=== PATIENT | female | born 1985 | race Caucasian/White ===

== ENCOUNTER 2017-02-27 19:10 | Emergency (ER) | payer MEDICAID, OTHER ==
[~2017-02-27] VITALS: Ht 162.6 cm; Wt 76.0 kg
[~2017-02-27 19:10] MED LIST: ACET325T33 PO; FERR240T9 PO; IBUP800T25 PO; PREN-39 PO
[2017-02-27 19:14] VITALS: Ht 162.6 cm; Wt 76.0 kg
--- NOTE | 2017-02-27 20:45 | ERD ---
ER Documentation Chief Complaint Date/Time DATE: 02/27/17 TIME: 20:41 Chief Complaint PALPITATIONS ON AND OFF SINCE MORNING WITH ANXIETY HPI 31-year-old female presents to emergency department for complaint of palpitations started this morning. Patient denies any chest pain. Patient denies any dyspnea on exertion and dyspnea on lying down. Patient denies eating any coughing. Patient denies any stressors that may be causing anxiety. Patient denies any fever or chills. Patient denies any cough. ROS All systems reviewed and are negative except as per history of present illness. Medications Home Meds Active Scripts Ibuprofen* (Motrin*) 800 Mg Tab, 800 MG PO Q6H Y for PAIN AND OR ELEVATED TEMP, #30 TAB Prov:TROY COTE MD 06/15/15 Acetaminophen* (Tylenol*) 325 Mg Tablet, 2 TAB PO Q6 Y for PAIN AND OR ELEVATED TEMP, #20 TAB Prov:LENKA DIXON DO 05/16/15 Reported Medications Ferrous Gluconate (Iron) 1 Tab Tablet, 1 TAB PO DAILY 12/26/14 Vits W-Ca,Fe,Fa(<1MG) ( Vitamins) 1 Tab Tablet, 1 TAB PO DAILY 12/05/14 Allergies Allergies: Coded Allergies: No Known Allergy (Verified , 12/26/14) PMhx/Soc Medical and Surgical Hx: pt denies Medical Hx, pt denies Surgical Hx History of Surgery: No Anesthesia Reaction: No Hx Neurological Disorder: No Hx Respiratory Disorders: No Hx Cardiac Disorders: No Hx Psychiatric Problems: No Hx Miscellaneous Medical Probl: No Hx Alcohol Use: No Hx Substance Use: No Hx Tobacco Use: No Smoking Status: Never smoker FmHx Family History: No coronary disease, No diabetes, No other Physical Exam Vitals Vital Signs Date Time Temp Pulse Resp B/P Pulse Ox O2 Delivery O2 Flow Rate FiO2 02/27/17 19:14 98.1 104 18 129/88 100 Physical Exam GENERAL: The patient is well developed and appropriate for usual state of health, in no apparent distress. NECK CHEST: Clear to auscultation bilaterally. There are no rales, wheezes or rhonchi. HEART: Tachycardic rate and rhythm. No murmurs, clicks, rubs or gallops. No S3 or S4. ABDOMEN: Soft, nontender and nondistended. Good bowel sounds. No rebound or guarding. No gross peritonitis. No gross organomegaly or masses. No Coreas sign or McBurney point tenderness. BACK: No midline or flank tenderness. EXTREMITIES: Equal pulses bilaterally. There is no peripheral clubbing, cyanosis or edema. No focal swelling or erythema. Full range of motion. Grossly neurovascularly intact. NEURO: Alert and oriented. Cranial nerves 2-12 intact. Motor strength in all 4 extremities with 5/5 strength. Sensation grossly intact. Normal speech and gait. SKIN: There is no apparent rash or petechia. The skin is warm and dry. HEMATOLOGIC AND LYMPHATIC: There is no evidence of excessive bruising or lymphedema. No gross cervical, axillary, or inguinal lymphadenopathy. Results 24 hrs PROCEDURE: XR Chest. CLINICAL INDICATION: Palpitations TECHNIQUE: Single frontal view of the chest was obtained COMPARISON: None FINDINGS: The heart and mediastinum are within normal limits. The lungs are clear. There is no pleural effusion or pneumothorax. RPTAT: AA IMPRESSION: No acute disease. .Ted Canseco MD, MD Date Time Electronically viewed and signed by .Ted Canseco MD, MD on 02/27/2017 21: 04 .S/ CC: GEOVANNA CARRANZA CONTRACTING EXECUTIVE EKG was done, read by me and is sinus tachycardia at 113 bpm, normal axis, there is no ST changes or changes in the EKG that indicates any cardiac emergencies at this time. Patient's EKG was also reviewed by Dr. Nelson. Impression: no acute findings on EKG Procedures/MDM Medical Decision Making: Patient's palpitations nonspecific at this time, could be anxiety related, nonspecific at this time, further evaluation by primary care doctor, possible cardiology evaluation for Holter monitoring and stress test for evaluation of palpitations. There is low suspicion for cardiopulmonary emergencies at this time. Patient has low risk factors. EKG is normal, there is no changes in the EKG that indicates cardiac emergencies. Chest X-ray does not show cardiopulmonary emergencies at this time. There is low suspicion for aortic aneurysm, myocardial infarction, pneumothorax, pleural effusion, pulmonary embolism, or any other cardiopulmonary emergencies at this time. Patient was advised to avoid caffeine. Follow-up with primary care doctor 1-2 days for reevaluation of symptoms. Patient was advised to return to emergency for any worsening symptoms Dispostion: Home. Stable Departure Diagnosis: Primary Impression: Palpitations Condition: Stable Patient Instructions: Palpitations Additional Instructions: Follow-up with primary care doctor 1-2 days, see rubber boots and shoes repairer specialist for possible Holter monitoring. Avoid caffeine. GEOVANNA CARRANZA NP Feb 27, 2017 20:45
--- NOTE | 2017-02-27 21:05 | RADRPT ---
PROCEDURE: XR Chest. CLINICAL INDICATION: Palpitations TECHNIQUE: Single frontal view of the chest was obtained COMPARISON: None FINDINGS: The heart and mediastinum are within normal limits. The lungs are clear. There is no pleural effusion or pneumothorax. RPTAT: AA IMPRESSION: No acute disease. .Ted Canseco MD, Date Time Electronically viewed and signed by .Ted Canseco MD, on 02/27/2017 21:04 .S/
[2017-02-27 21:33] VITALS: BP 118/79; PULSE 89; RESP 20
== END 2017-02-27 21:36 | disposition home or self-care (01) ==
LOC: FTE 19:10
DX: R00.2 Palpitations (principal)
CPT/HCPCS: 71010; 93005; Z7502

== ENCOUNTER 2017-06-30 09:11 | Emergency (ER) | payer SELFPAY ==
[~2017-06-30] VITALS: Wt 80.4 kg
[2017-06-30] MEDS ORDERED: FLUT9.9S NASAL (10:04)
[2017-06-30] MEDS ORDERED: ALBU18HF INHALATION (10:04)
[2017-06-30] MEDS ORDERED: LORA5TAB4 PO (10:04)
--- NOTE | 2017-06-30 12:06 | ERD ---
ER Documentation Chief Complaint Chief Complaint cold symptoms x2 months HPI Patient is a 31-year-old female presenting for intermittent, mild nasal congestion and dry cough for the past 2 months. She denies fevers, chills, or other symptoms. ROS All systems reviewed and are negative except as per history of present illness. Medications Home Meds Active Scripts Albuterol Sulfate* (Ventolin HFA*) 18 Gm Hfa.aer.ad, 2 PUFF INHALATION Q4H, #1 INHALER Prov:JOAQUINA CATES PA-C 06/30/17 Loratadine* (Claritin*) 5 Mg Tab.rapdis, 5 MG PO DAILY, #30 TAB Prov:JOAQUINA CATES PA-C 06/30/17 Fluticasone Propionate (Flonase Allergy Relief) 9.9 Ml Aldrich.susp, 1 SPRAY NASAL BID, #1 BOTTLE TO EACH NOSTRIL Prov:JOAQUINA CATES PA-C 06/30/17 Ibuprofen* (Motrin*) 800 Mg Tab, 800 MG PO Q6H Y for PAIN AND OR ELEVATED TEMP, #30 TAB Prov:TROY COTE MD 06/15/15 Acetaminophen* (Tylenol*) 325 Mg Tablet, 2 TAB PO Q6 Y for PAIN AND OR ELEVATED TEMP, #20 TAB Prov:LENKA DIXON DO 05/16/15 Reported Medications Ferrous Gluconate (Iron) 1 Tab Tablet, 1 TAB PO DAILY 12/26/14 Vits W-Ca,Fe,Fa(<1MG) ( Vitamins) 1 Tab Tablet, 1 TAB PO DAILY 12/05/14 Allergies Allergies: Coded Allergies: No Known Allergy (Verified , 12/26/14) PMhx/Soc Medical and Surgical Hx: pt denies Medical Hx, pt denies Surgical Hx History of Surgery: No Anesthesia Reaction: No Hx Neurological Disorder: No Hx Respiratory Disorders: No Hx Cardiac Disorders: No Hx Psychiatric Problems: No Hx Miscellaneous Medical Probl: No Hx Alcohol Use: No Hx Substance Use: No Hx Tobacco Use: No Smoking Status: Never smoker Physical Exam Vitals Vital Signs Date Time Temp Pulse Resp B/P Pulse Ox O2 Delivery O2 Flow Rate FiO2 06/30/17 09:14 98.4 72 20 112/64 96 Physical Exam Const: Nontoxic, well-appearing female in no acute distress. Head: Atraumatic Eyes: Normal Conjunctiva ENT: Normal External Ears, Nose and Mouth. Nares are congested bilaterally. Neck: Full range of motion..~ No meningismus. Resp: Clear to auscultation bilaterally Cardio: Regular rate and rhythm, no murmurs Ext: No cyanosis, or edema Neur: Awake and alert Psych: Normal Mood and Affect Procedures/MDM 31-year-old female presenting for seasonal allergy symptoms. Vital signs are stable and physical examination is essentially unremarkable. She is stable for outpatient management with prescriptions. No evidence of life-threatening pathology at time of discharge. Pt/family in agreement with discharge plan/ diagnosis. Pt/family advised to return immediately with any new or worsening symptoms. Follow-up with primary care physician within the next 1-2 days. Departure Diagnosis: Primary Impression: Seasonal allergies Chronicity: acute Allergic rhinitis trigger: unspecified Qualified Code: J30.2 - Acute seasonal allergic rhinitis, unspecified trigger Condition: Fair Patient Instructions: Nasal Allergies: Related Problems [facility] Usted se asencio hecho un examen mdico de control que le indica que no est en tash condicin que requiera tratamiento urgente en el Departamento de Emergencia. Un estudio ms profundo y el tratamiento de boucher condicin pueden esperar sin ningn riesgo hasta que usted sea atendida/o en el consultorio de boucher mdico o tash cl marcela. Es responsabilidad suya arreglar tash precious para el seguimiento del oliver. MANEJO DE CONDICIONES NO URGENTES EN EL FUTURO 1) Si usted tiene un mdico de atencin primaria: Usted debera llamar a boucher mdico de atencin primaria antes de venir al departamento de emergencia. Despus de las horas de consultorio, boucher doctor o boucher asociado/a est disponible por telfono. El mdico o enfermero de melanie en el servicio telefnico puede asesorarle por peyman medio para atender el problema, o oliver contrario se puede programar tash precious. 2) Si usted no tiene un mdico de atencin primaria: Llame al mdico o clnica de referencia que aparece abajo fercho las horas de consultorio para hacer tash precious para que le vean. CLINICAS: [facility] [phone] [facility] [phone] [facility] [phone] [place] [phone] [place] [phone] [facility] [phone] [address] Additional Instructions: No mas mejor en 2-3 milligan, regresar. Mas peor en 24 horas, regresear rapidamente. Ir a doctor primario en 1-2 milligan. Usar instrucciones cuando silvestre medicamento. JOAQUINA CATES PA-C Jun 30, 2017 12:06
== END 2017-06-30 10:35 | disposition home or self-care (01) ==
LOC: FTE 09:11
DX: J30.2 Other seasonal allergic rhinitis (principal)
CPT/HCPCS: 99283